=== PATIENT | male | born 1950 | race Caucasian/White ===

== ENCOUNTER → 2021-03-04 | Day surgery (SDC) | payer MEDICARE, OTHER ==
[~2021-03-04] VITALS: Ht 182.9 cm; Wt 92.5 kg
[~2021-03-04] MED LIST: LIPITOR40 MG PO; LISINOPRIL-HCT1 EAC2 PO; LOPID600 MG PO; LOPRESSOR50 MG PO
== END | disposition home or self-care (01) ==
LOC: FAS 07:17
DX: Z12.11 Encounter for screening for malignant neoplasm of colon (principal); Z86.010 Personal history of colon polyps; Z80.0 Family history of malignant neoplasm of digestive organs; K57.30 Diverticulosis of large intestine without perforation or abscess without bleeding; E78.5 Hyperlipidemia, unspecified; I10 Essential (primary) hypertension; Z87.891 Personal history of nicotine dependence; E78.00 Pure hypercholesterolemia, unspecified; R00.1 Bradycardia, unspecified; M54.30 Sciatica, unspecified side
CPT/HCPCS: 93005; J2250; J2704; J7120